=== PATIENT | female | born 1980 | race Two or more races ===

== ENCOUNTER 2022-12-07 10:02 | Emergency (ER) | payer BC ==
[~2022-12-07] VITALS: Ht 167.6 cm; Wt 99.8 kg
[2022-12-07] MEDS ORDERED: SYMBICORT 16010.2 GM (11:03)
== END 2022-12-07 11:58 | disposition home or self-care (01) ==
LOC: ER 10:02
DX: S91.341A Puncture wound with foreign body, right foot, initial encounter (principal); W45.8XXA Other foreign body or object entering through skin, initial encounter; Y93.89 Activity, other specified; Y92.832 Beach as the place of occurrence of the external cause; J45.909 Unspecified asthma, uncomplicated